=== PATIENT | male | born 1955 | race Caucasian/White ===

== ENCOUNTER 2018-02-13 22:17 | Emergency (ER) | payer BC, OTHER ==
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
[2018-02-14 00:21] VITALS: BP 96/66
--- NOTE | 2018-02-14 07:15 | RAD ---
INDICATION: Chest injury COMPARISON: April 05, 2015 TECHNIQUE: An AP portable view obtained at 2342 hours is submitted. FINDINGS: Bones/Soft Tissues: There are no acute bony findings. Consider rib detailed series if there is concern for rib fracture. Cardiomediastinal: The cardiomediastinal silhouette is normal. Lungs: There are no infiltrates. Examination mildly expiratory. There is vascular crowding. Pleura: There are no pleural effusions. Other: None IMPRESSION: EXPIRATORY FILM WITH VASCULAR CROWDING
== END 2018-02-14 00:47 | disposition short-term general hospital (02) ==
LOC: ED 22:17
DX: S06.9X1A Unspecified intracranial injury with loss of consciousness of 30 minutes or less, initial encounter (principal); R06.02 Shortness of breath; R07.9 Chest pain, unspecified; R55 Syncope and collapse; V23.4XXA Motorcycle driver injured in collision with car, pick-up truck or van in traffic accident, initial encounter; Y93.55 Activity, bike riding; Y92.410 Unspecified street and highway as the place of occurrence of the external cause
CPT/HCPCS: 71045; 93005; 99285